=== PATIENT | female | born 1985 | race Two or more races ===

== ENCOUNTER 2017-07-26 22:03 | Emergency (ER) | payer MEDICAID ==
[~2017-07-26] VITALS: Ht 160 cm; Wt 82.6 kg
[2017-07-26 22:49] LABS: Basophils # (auto) 0.1 uL; Basophils % (auto) 1.2 % (0.0-2.0); Eosinophils # (auto) 0.2 uL; Eosinophils % (auto) 2.5 % (0.0-7.0); Hematocrit 39.4 % (36.0-46.0); Hemoglobin 13.2 g/dL (12.2-16.2); Lymphocytes # (auto) 3.3 uL; Lymphocytes % (auto) 43.9 % (10.0-50.0); Mean Corpuscular Hemoglobin 29.1 pg (28.0-32.0); Mean Corpuscular Hgb Conc. 33.4 g/dL (32.0-36.0); Mean Corpuscular Volume 87.1 fL (80.0-100.0); Monocytes # (auto) 0.6 uL; Monocytes % (auto) 7.8 % (0.0-12.0); Neutrophils # (auto) 3.4 uL; Neutrophils % (auto) 44.6 % (37.0-80.0); Nucleated Red Blood Cells % 0.1 %; Platelet Count (auto) 273 10^3/uL (140-450); Red Blood Cells 4.53 10^6/uL (4.0-5.20); Red Cell Distribution Width 12.9 % (11.8-14.3); White Blood Cell 7.5 10^3/uL (4.4-10.8)
[2017-07-26 22:54] LABS: Urine Amorphous Crystal FEW /hpf (None Seen); Urine Bacteria FEW /hpf (None Seen); Urine Blood Negative /uL (Negative); Urine Mucus FEW (None Seen); Urine Specific Gravity 1.032 (1.001-1.035); Urine WBC 4 /hpf (0 - 5)
[2017-07-26 23:03] LABS: INR 0.92 (0.9-1.15); Partial Thromboplastin Time 25.1 sec (22.64-33.71)
[2017-07-26 23:16] LABS: Albumin 3.4 g/dL (3.4-5.0); BUN/Creatinine Ratio 18.8; Bilirubin, Total 0.2 mg/dL (0.2-1.0); Calcium 8.8 mg/dL (8.5-10.1); Potassium 3.7 mmol/L (3.5-5.1); Total Protein 7.3 g/dL (6.4-8.2)
[2017-07-27 02:07] VITALS: BP 113/68
== END 2017-07-27 02:13 | disposition home or self-care (01) ==
LOC: ER 22:03
DX: K80.20 Calculus of gallbladder without cholecystitis without obstruction (principal)
CPT/HCPCS: 36415; 74176; 76705; 80053; 81001; 81025; 82150; 83690; 83735; 85025; 85610; 85730

== ENCOUNTER 2017-07-31 03:43 | Inpatient (IN) | payer MEDICAID ==
[~2017-07-31] VITALS: Ht 160 cm; Wt 81.5 kg
[2017-07-31] MEDS ORDERED: SODIUM CHLORIDE 0.9% 1,000 ML IV ONE ×2 (05:04→07:30)
[2017-07-31] MEDS ORDERED: ONDANSETRON HCL 4 MG/2 ML VIAL IV ONE ×3 (05:15→10:00)
[2017-07-31] MEDS ORDERED: NALBUPHINE HCL 10 MG/1ml INJECTION IV ONE ×2 (05:15→06:15)
[2017-07-31 06:01] LABS: Urine Bacteria FEW /hpf (None Seen); Urine Blood Negative /uL (Negative); Urine Mucus FEW (None Seen); Urine Specific Gravity 1.031 (1.001-1.035); Urine WBC 5 /hpf (0 - 5)
[2017-07-31] MEDS ORDERED: PROMETHAZINE HCL 25 MG/ML 1ML IV ONE (07:30)
[2017-07-31] MEDS ORDERED: MORPHINE SULFATE 4 MG/ML SYR/VIAL IV ONE (07:30)
[2017-07-31 07:42] LABS: Basophils # (auto) 0 uL; Basophils % (auto) 0.3 % (0.0-2.0); Eosinophils # (auto) 0 uL; Eosinophils % (auto) 0.1 % (0.0-7.0); Hematocrit 38.8 % (36.0-46.0); Hemoglobin 12.8 g/dL (12.2-16.2); Lymphocytes # (auto) 1.9 uL; Lymphocytes % (auto) 13.4 % (10.0-50.0); Mean Corpuscular Hemoglobin 28.5 pg (28.0-32.0); Mean Corpuscular Volume 86.6 fL (80.0-100.0); Monocytes # (auto) 0.5 uL; Monocytes % (auto) 3.4 % (0.0-12.0); Neutrophils # (auto) 11.5 uL; Neutrophils % (auto) 82.8 % (37.0-80.0); Nucleated Red Blood Cells % 0.1 %; Platelet Count (auto) 255 10^3/uL (140-450); Red Blood Cells 4.48 10^6/uL (4.0-5.20); Red Cell Distribution Width 12.6 % (11.8-14.3); White Blood Cell 13.9 10^3/uL (4.4-10.8)
[2017-07-31 07:55] LABS: Albumin 3.3 g/dL (3.4-5.0); BUN/Creatinine Ratio 19.4; Bilirubin, Total 0.3 mg/dL (0.2-1.0); Calcium 7.9 mg/dL (8.5-10.1); Potassium 3.8 mmol/L (3.5-5.1); Total Protein 7.1 g/dL (6.4-8.2)
[2017-07-31] MEDS ORDERED: cefTRIAXone 1GM/10ml IVPUSH 10 ML IV ONE (10:00)
[2017-07-31] MEDS ORDERED: HYDROmorphone HCL 2 MG/ML VL IV ONE (10:00)
[2017-07-31] MEDS ORDERED: CLINDAMYCIN 600MG IV 50 ML IV ONE (10:00)
[2017-07-31] MEDS ORDERED: DOCUSATE SOD 100 MG CAP PO PRN (13:15)
[2017-07-31] MEDS ORDERED: HYDROcodone-ACET 5/325MG TAB PO PRN (13:15)
[2017-07-31] MEDS: MULTIPLE VITAMIN TAB PO SCH (13:56)
[2017-07-31] MEDS: ASCORBIC ACID 500 MG TAB PO SCH ×2 (13:56→22:59)
[2017-07-31] MEDS: ZINC SULFATE 220 MG CAP PO SCH (13:56)
[2017-07-31] MEDS: SODIUM CHLORIDE 0.9% 1,000 ML IV SCH ×2 (13:57→22:59)
[2017-07-31] MEDS: metroNIDAZOLE 500MG/100ML 100 ML IV SCH ×2 (14:31→22:58)
[2017-07-31] MEDS: ONDANSETRON HCL 4 MG/2 ML VIAL IV PRN ×3 (15:01→22:59)
[2017-07-31] MEDS: MORPHINE SULFATE 4 MG/ML SYR/VIAL IV PRN ×3 (15:01→22:59)
[2017-07-31 16:13] VITALS: BP 136/80
[2017-07-31 16:41] VITALS: BP 136/80
[2017-07-31] MEDS: BOOST PLUS 8 ounce PO SCH (17:54)
[2017-07-31] MEDS: ACETAMINOPHEN 325 MG TAB PO PRN (20:16)
[2017-07-31 22:00] VITALS: BP 126/66
[2017-07-31] MEDS: FAMOTIDINE 20 MG TAB PO SCH (22:58)
[2017-07-31] MEDS: TEMAZEPAM 15 MG CAP PO PRN (23:51)
[2017-08-01] MEDS: ACETAMINOPHEN 325 MG TAB PO PRN ×2 (00:34→04:28)
[2017-08-01 04:56] VITALS: BP 119/74
[2017-08-01] MEDS: MORPHINE SULFATE 4 MG/ML SYR/VIAL IV PRN ×3 (05:26→22:34)
[2017-08-01] MEDS: metroNIDAZOLE 500MG/100ML 100 ML IV SCH ×3 (05:40→22:35)
[2017-08-01 06:33] LABS: Basophils # (auto) 0.1 uL; Basophils % (auto) 0.6 % (0.0-2.0); Eosinophils # (auto) 0 uL; Eosinophils % (auto) 0.4 % (0.0-7.0); Hematocrit 37.4 % (36.0-46.0); Hemoglobin 12.4 g/dL (12.2-16.2); Lymphocytes # (auto) 2.5 uL; Lymphocytes % (auto) 23.7 % (10.0-50.0); Mean Corpuscular Hemoglobin 28.9 pg (28.0-32.0); Mean Corpuscular Hgb Conc. 33.2 g/dL (32.0-36.0); Monocytes # (auto) 0.7 uL; Monocytes % (auto) 6.8 % (0.0-12.0); Neutrophils # (auto) 7.4 uL; Neutrophils % (auto) 68.5 % (37.0-80.0); Nucleated Red Blood Cells % 0.1 %; Platelet Count (auto) 230 10^3/uL (140-450); White Blood Cell 10.7 10^3/uL (4.4-10.8)
[2017-08-01 06:58] LABS: Potassium 3.2 mmol/L (3.5-5.1)
[2017-08-01 07:04] LABS: Albumin 2.8 g/dL (3.4-5.0); Calcium 8.2 mg/dL (8.5-10.1)
[2017-08-01 07:06] LABS: Bilirubin, Total 0.4 mg/dL (0.2-1.0); Total Protein 6.3 g/dL (6.4-8.2)
[2017-08-01 08:45] VITALS: BP 127/67
[2017-08-01] MEDS: MULTIPLE VITAMIN TAB PO SCH (09:52)
[2017-08-01] MEDS: FAMOTIDINE 20 MG TAB PO SCH ×2 (09:52→22:34)
[2017-08-01] MEDS: ASCORBIC ACID 500 MG TAB PO SCH ×2 (09:52→22:34)
[2017-08-01] MEDS: ZINC SULFATE 220 MG CAP PO SCH (09:52)
[2017-08-01] MEDS: cefTRIAXone 1GM/10ml IVPUSH 10 ML IV SCH (09:52)
[2017-08-01] MEDS: BOOST PLUS 8 ounce PO SCH ×3 (09:53→18:09)
[2017-08-01] MEDS ORDERED: D5W/ SOD CHL 0.9%/KCL 20MEQ 1,000 ML IV ONE (10:15)
[2017-08-01 11:55] VITALS: BP 129/72
[2017-08-01 12:30] LABS: INR 0.97 (0.9-1.15); Partial Thromboplastin Time 26.5 sec (22.64-33.71); Prothrombin Time 10.6 sec (9.37-12.3)
[2017-08-01] MEDS: POTASSIUM CHL 20MEQ/100ML 100 ML IV SCH ×2 (12:30→12:53)
[2017-08-01] MEDS: ONDANSETRON HCL 4 MG/2 ML VIAL IV PRN ×2 (12:53→22:34)
[2017-08-01] MEDS ORDERED: POTASSIUM CHL 20 Meq TABLET PO ONE (14:45)
[2017-08-01 17:00] VITALS: BP 121/72
[2017-08-01 22:00] VITALS: BP 119/75
[2017-08-01] MEDS: TEMAZEPAM 15 MG CAP PO PRN (22:35)
[2017-08-02] VITALS (7 sets, daily range): BP systolic 114–124; BP diastolic 62–76
[2017-08-02] MEDS: metroNIDAZOLE 500MG/100ML 100 ML IV SCH ×3 (07:06→21:20)
[2017-08-02 07:14] LABS: Basophils # (auto) 0.1 uL; Basophils % (auto) 0.7 % (0.0-2.0); Eosinophils # (auto) 0.1 uL; Eosinophils % (auto) 1.6 % (0.0-7.0); Hematocrit 36.3 % (36.0-46.0); Hemoglobin 12.1 g/dL (12.2-16.2); Lymphocytes # (auto) 2.8 uL; Lymphocytes % (auto) 30.8 % (10.0-50.0); Mean Corpuscular Hemoglobin 29.4 pg (28.0-32.0); Mean Corpuscular Hgb Conc. 33.4 g/dL (32.0-36.0); Mean Corpuscular Volume 87.9 fL (80.0-100.0); Monocytes # (auto) 0.6 uL; Monocytes % (auto) 6.2 % (0.0-12.0); Neutrophils # (auto) 5.5 uL; Neutrophils % (auto) 60.7 % (37.0-80.0); Nucleated Red Blood Cells % 0.3 %; Platelet Count (auto) 235 10^3/uL (140-450); Red Blood Cells 4.13 10^6/uL (4.0-5.20); Red Cell Distribution Width 13.3 % (11.8-14.3)
[2017-08-02 07:28] LABS: Calcium 8.2 mg/dL (8.5-10.1); Potassium 3.9 mmol/L (3.5-5.1)
[2017-08-02] MEDS ORDERED: ceFAZolin 1GM/100ML 100 ML IV ONE (07:58)
[2017-08-02] MEDS: BOOST PLUS 8 ounce PO SCH ×3 (08:00→18:00)
[2017-08-02] MEDS ORDERED: LIDOCAINE 1% (LOCAL ANESTH.) PF 5ml SDV ONE (08:06)
[2017-08-02] MEDS ORDERED: MIDAZOLAM HCL 1MG/1ML-2 ML VIAL ONE (08:08)
[2017-08-02] MEDS ORDERED: PROPOFOL 10 MG/ML 20 ML IV ONE (08:08)
[2017-08-02] MEDS ORDERED: SUCCINYLCHOLINE CHLORIDE 20 MG/ML 10ML VIAL IV ONE (08:08)
[2017-08-02] MEDS ORDERED: ROCURONIUM 10MG/ML 10ML VIAL IV ONE (08:09)
[2017-08-02] MEDS ORDERED: fentaNYL CITRATE 100 MCG/2 ML VL ONE (08:16)
[2017-08-02] MEDS ORDERED: MORPHINE SULFATE 4 MG/ML SYR/VIAL IV PRN (08:30)
[2017-08-02] MEDS ORDERED: ONDANSETRON HCL 4 MG/2 ML VIAL IV ONE (08:30)
[2017-08-02] MEDS ORDERED: NALOXONE HCL 0.4 MG/ML VIAL IV PRN (08:30)
[2017-08-02] MEDS ORDERED: KETOROLAC TROMETH 30 MG/ML 1ML VIAL ONE (08:31)
[2017-08-02] MEDS ORDERED: GLYCOPYRROLATE 0.2 MG/ML 1ML VIAL ONE (08:40)
[2017-08-02] MEDS ORDERED: NEOSTIGMINE 1 MG/ML INJ (10mg/10ML VIAL) ONE (08:40)
[2017-08-02] MEDS ORDERED: POVIDONE IODINE 10 % TOPICAL OINT 30GM TOP ONE (08:40)
[2017-08-02] MEDS: cefTRIAXone 1GM/10ml IVPUSH 10 ML IV SCH (10:50)
[2017-08-02] MEDS: ZINC SULFATE 220 MG CAP PO SCH (14:32)
[2017-08-02] MEDS: MULTIPLE VITAMIN TAB PO SCH (14:33)
[2017-08-02] MEDS: ASCORBIC ACID 500 MG TAB PO SCH ×2 (14:33→21:24)
[2017-08-02] MEDS: FAMOTIDINE 20 MG TAB PO SCH ×2 (14:33→21:20)
[2017-08-02] MEDS: MORPHINE SULFATE 4 MG/ML SYR/VIAL IV PRN (21:21)
[2017-08-03] MEDS: MORPHINE SULFATE 4 MG/ML SYR/VIAL IV PRN ×2 (03:31→22:22)
[2017-08-03 04:55] VITALS: BP 114/70
[2017-08-03] MEDS: metroNIDAZOLE 500MG/100ML 100 ML IV SCH ×3 (05:40→21:41)
[2017-08-03 06:51] LABS: Basophils # (auto) 0.1 uL; Basophils % (auto) 0.6 % (0.0-2.0); Eosinophils # (auto) 0.1 uL; Eosinophils % (auto) 1.3 % (0.0-7.0); Hematocrit 34.2 % (36.0-46.0); Hemoglobin 11.5 g/dL (12.2-16.2); Lymphocytes # (auto) 2.5 uL; Lymphocytes % (auto) 28.1 % (10.0-50.0); Mean Corpuscular Hemoglobin 29.4 pg (28.0-32.0); Mean Corpuscular Hgb Conc. 33.7 g/dL (32.0-36.0); Mean Corpuscular Volume 87.2 fL (80.0-100.0); Monocytes # (auto) 0.5 uL; Monocytes % (auto) 6.3 % (0.0-12.0); Neutrophils # (auto) 5.6 uL; Neutrophils % (auto) 63.7 % (37.0-80.0); Platelet Count (auto) 232 10^3/uL (140-450); Red Blood Cells 3.92 10^6/uL (4.0-5.20); White Blood Cell 8.7 10^3/uL (4.4-10.8)
[2017-08-03 07:07] LABS: BUN/Creatinine Ratio 7.8; Calcium 8.1 mg/dL (8.5-10.1); Potassium 3.4 mmol/L (3.5-5.1)
[2017-08-03] MEDS: BOOST PLUS 8 ounce PO SCH ×3 (08:00→18:30)
[2017-08-03 08:43] VITALS: BP 131/76
[2017-08-03] MEDS ORDERED: POTASSIUM CHL 20 Meq TABLET PO ONE (09:00)
[2017-08-03] MEDS: MULTIPLE VITAMIN TAB PO SCH (10:21)
[2017-08-03] MEDS: FAMOTIDINE 20 MG TAB PO SCH ×2 (10:21→21:41)
[2017-08-03] MEDS: cefTRIAXone 1GM/10ml IVPUSH 10 ML IV SCH (10:21)
[2017-08-03] MEDS: ASCORBIC ACID 500 MG TAB PO SCH ×2 (10:22→21:41)
[2017-08-03] MEDS: ZINC SULFATE 220 MG CAP PO SCH (10:22)
[2017-08-03 12:42] VITALS: BP 129/82
[2017-08-03 17:24] VITALS: BP 116/65
[2017-08-03 20:00] VITALS: BP 126/80
[2017-08-04] MEDS: MORPHINE SULFATE 4 MG/ML SYR/VIAL IV PRN (04:00)
[2017-08-04] MEDS: ONDANSETRON HCL 4 MG/2 ML VIAL IV PRN (04:01)
[2017-08-04 04:59] VITALS: BP 120/73
[2017-08-04] MEDS: metroNIDAZOLE 500MG/100ML 100 ML IV SCH (06:13)
[2017-08-04 06:49] LABS: Basophils # (auto) 0.1 uL; Basophils % (auto) 0.7 % (0.0-2.0); Eosinophils # (auto) 0.3 uL; Eosinophils % (auto) 3.6 % (0.0-7.0); Hematocrit 35.5 % (36.0-46.0); Lymphocytes # (auto) 2.4 uL; Lymphocytes % (auto) 28.6 % (10.0-50.0); Mean Corpuscular Hemoglobin 29.3 pg (28.0-32.0); Mean Corpuscular Hgb Conc. 33.8 g/dL (32.0-36.0); Mean Corpuscular Volume 86.7 fL (80.0-100.0); Monocytes # (auto) 0.5 uL; Monocytes % (auto) 5.6 % (0.0-12.0); Neutrophils # (auto) 5.2 uL; Neutrophils % (auto) 61.5 % (37.0-80.0); Nucleated Red Blood Cells % 0.1 %; Platelet Count (auto) 254 10^3/uL (140-450); Red Blood Cells 4.09 10^6/uL (4.0-5.20); Red Cell Distribution Width 13.2 % (11.8-14.3); White Blood Cell 8.5 10^3/uL (4.4-10.8)
[2017-08-04 07:13] LABS: BUN/Creatinine Ratio 9.4; Calcium 8.2 mg/dL (8.5-10.1); Potassium 3.2 mmol/L (3.5-5.1)
[2017-08-04 07:47] VITALS: BP 114/68
[2017-08-04] MEDS: cefTRIAXone 1GM/10ml IVPUSH 10 ML IV SCH (09:00)
[2017-08-04] MEDS ORDERED: POTASSIUM CHL 20 Meq TABLET PO ONE (09:15)
[2017-08-04] MEDS: ZINC SULFATE 220 MG CAP PO SCH (10:54)
[2017-08-04] MEDS: MULTIPLE VITAMIN TAB PO SCH (10:54)
[2017-08-04] MEDS: ASCORBIC ACID 500 MG TAB PO SCH (10:54)
[2017-08-04] MEDS: BOOST PLUS 8 ounce PO SCH (10:54)
[2017-08-04] MEDS: FAMOTIDINE 20 MG TAB PO SCH (10:54)
[2017-08-04 11:24] VITALS: BP 111/63
[2017-08-04 11:41] VITALS: BP 114/68
== END 2017-08-04 12:35 | disposition home or self-care (01) | DRG 263 ==
LOC: ER 03:45 → OVERFLOW 03:46 → EAST 16:33
PROVIDERS: ADMIT Internal Medicine; ATTEND Internal Medicine
PROC: 0FT44ZZ Resection of Gallbladder, Percutaneous Endoscopic Approach (ICD-10-PCS; principal; 2017-08-02 08:07)
DX: K80.00 Calculus of gallbladder with acute cholecystitis without obstruction (principal); E44.0 Moderate protein-calorie malnutrition; E66.01 Morbid (severe) obesity due to excess calories; E83.51 Hypocalcemia; N39.0 Urinary tract infection, site not specified; B96.20 Unspecified Escherichia coli [E. coli] as the cause of diseases classified elsewhere; E87.6 Hypokalemia; R73.9 Hyperglycemia, unspecified; J45.909 Unspecified asthma, uncomplicated; K21.9 Gastro-esophageal reflux disease without esophagitis; Z68.31 Body mass index [BMI] 31.0-31.9, adult; Z71.3 Dietary counseling and surveillance
CPT/HCPCS: 36415; 74176; 76705; 80048; 80053; 81001; 81025; 82150; 82247; 83605; 83690; 85025; 85610; 85730; 86850; 86900; 86901; 87040; 87086; 96361; 96365; 96375; J0330; J0690; J1885; J2250; J2405; J2704; J3480; J3490